=== PATIENT | male | born 1940 | race Caucasian/White ===

== ENCOUNTER 2018-10-01 13:05 | Emergency (ER) | payer MEDICARE ==
[~2018-10-01] VITALS: Ht 175.3 cm; Wt 100.0 kg
[~2018-10-01 13:05] MED LIST: ADULT ASPIRIN E81 MG PO; ADULT ASPIRIN L81 MG PO; ALEVE220 M1 PO; ALLEGRA-D 2424 HOUR PO; CARDURA2 MG PO; CIPRODEX1 ML OT; CITALOPRAM10 MG PO; COSOPT1 ML OP; DEPO-MEDROL80 MG/ML IM; DOXAZOSIN1 MG PO; ELAVIL25 MG PO; FLEXERIL OR; FLEXERIL PO; FLEXERIL5 MG PO; HYDROCHLOROT12.5 MG PO; LAMISIL250 MG PO; LIALDA1.2 GM PO; LIPITOR10 MG PO; LIPITOR40 MG OR; LISINOP/HCTZ1 TA1 PO; LOMOTIL2.5 MG OR; LORTAB 7.57.5 MG PO; LYRICA50 MG PO; METOPROLOL TART50 MG PO; MULTI VIT PO; NEURONTIN300 MG PO; NEURONTIN600 MG PO; NORVASC10 M1 OR; OMEPRAZOLE20 MG PO; PLAVIX75 MG PO; SPORANOX100 MG PO; TRUBIOTICS PO; ULTRAM50 MG OR; UROCIT-K 10 OR; ZESTRIL20 MG OR; ZPAK PO; ZYLOPRIM300 MG OR; ZYLOPRIM300 MG PO; [UNRECOGNIZED DRUG - CODE] OR; [UNRECOGNIZED DRUG - OTHER] PO
[2018-10-01] MEDS ORDERED: ATORVASTATIN CA10 MG PO (14:06)
[2018-10-01] MEDS ORDERED: DOXAZOSIN1 MG PO (14:07)
[2018-10-01] MEDS ORDERED: GABAPENTIN100 MG PO (14:08)
[2018-10-01] MEDS ORDERED: SPIRONOLACTONE25 MG PO (14:09)
[2018-10-01] MEDS ORDERED: TIMOLOL 0.5%5 ML OD (14:09)
[2018-10-01] MEDS ORDERED: BRILINTA60 MG PO (14:10)
[2018-10-01 15:34] VITALS: BP 143/79
== END 2018-10-01 15:34 | disposition home or self-care (01) ==
LOC: ED 13:05
DX: S06.0X1A Concussion with loss of consciousness of 30 minutes or less, initial encounter (principal); S01.81XA Laceration without foreign body of other part of head, initial encounter; I10 Essential (primary) hypertension; W01.0XXA Fall on same level from slipping, tripping and stumbling without subsequent striking against object, initial encounter; Y92.008 Other place in unspecified non-institutional (private) residence as the place of occurrence of the external cause; Z95.5 Presence of coronary angioplasty implant and graft

== ENCOUNTER → 2018-12-07 | Outpatient (REF) | payer MEDICARE ==
[~2018-12-07] MED LIST changes: +ATORVASTATIN CA10 MG PO; +BRILINTA60 MG PO; +GABAPENTIN100 MG PO; +SPIRONOLACTONE25 MG PO; +TIMOLOL 0.5%5 ML OD
[2018-12-07 08:41] LABS: HEMATOCRIT 42.5 % (39.0-50.0); HEMOGLOBIN 14.4 g/dl (14.0-18.0); IMMATURE GRANULOCYTES 0.2 % (0.0-5.0); MEAN CELL VOLUME 98.8 fL CALC (80.0-100.0); MEAN CORPUSCULAR HGB 33.5 pG CALC (26.0-32.0); MEAN CORPUSCULAR HGB CONC 33.9 g/L CALC (32.0-36.0); NEUT# 3.9 thou/uL (1.82-7.42); RED BLOOD COUNT 4.3 mill/uL (4.70-6.10); RED CELL DISTRI WIDTH 13.6 % (11.5-15.5)
[2018-12-07 09:01] LABS: ANION GAP 15 (6-22 (CALC)); BUN 23 mg/dL (8-23); BUN/CREATININE RATIO 21 (12-20 (CALC)); CARBON DIOXIDE 24 mmol/l (22-30); CHLORIDE 102 mmol/l (95-108); CREATININE 1.1 mg/dL (0.7-1.3); GFR > 60 ML/MIN (>=60 (CALC)); GFR FOR AFR.AMER. > 60 ML/MIN (>=60 (CALC)); POTASSIUM 3.7 mmol/l (3.5-5.1); SODIUM 138 mmol/l (137-146)
== END | disposition home or self-care (01) ==
LOC: LAB 07:37
PROVIDERS: ATTEND Internal Medicine
DX: E78.49 Other hyperlipidemia (principal); I10 Essential (primary) hypertension

== ENCOUNTER 2019-06-09 13:49 | Emergency (ER) | payer MEDICARE ==
[~2019-06-09] VITALS: Ht 175.3 cm; Wt 100.0 kg
[2019-06-09] MEDS ORDERED: FLEXERIL PO (15:15)
[2019-06-09] MEDS ORDERED: TORADOL PO (15:15)
[2019-06-09 15:24] VITALS: BP 111/55
== END 2019-06-09 15:30 | disposition home or self-care (01) ==
LOC: ED 13:49
DX: S16.1XXA Strain of muscle, fascia and tendon at neck level, initial encounter (principal); M46.92 Unspecified inflammatory spondylopathy, cervical region; I10 Essential (primary) hypertension; X58.XXXA Exposure to other specified factors, initial encounter

== ENCOUNTER 2019-09-03 12:27 | Emergency (ER) | payer MEDICARE ==
[~2019-09-03] VITALS: Ht 175.3 cm; Wt 100.0 kg
[~2019-09-03 12:27] MED LIST changes: +TORADOL PO
[2019-09-03 14:00] VITALS: BP 132/69
== END 2019-09-03 14:00 | disposition home or self-care (01) ==
LOC: ED 12:27
PROC: 0HQFXZZ Repair Right Hand Skin, External Approach (ICD-10-PCS; principal; 2019-09-03)
DX: S61.011A Laceration without foreign body of right thumb without damage to nail, initial encounter (principal); I10 Essential (primary) hypertension; W26.0XXA Contact with knife, initial encounter; Y93.89 Activity, other specified

== ENCOUNTER 2019-12-12 | Emergency (ER) | payer MEDICARE ==
[2019-12-12] MEDS ORDERED: BACTRIM DS1 TAB PO (10:22)
[2019-12-12] MEDS ORDERED: OMNICEF300 M1 PO (10:33)
== END 2019-12-12 10:50 | disposition home or self-care (01) ==
PROC: 0H99XZZ Drainage of Perineum Skin, External Approach (ICD-10-PCS; principal; 2019-12-12)
DX: L02.215 Cutaneous abscess of perineum (principal); I10 Essential (primary) hypertension; B95.62 Methicillin resistant Staphylococcus aureus infection as the cause of diseases classified elsewhere

== ENCOUNTER 2020-01-22 | Emergency (ER) | payer MEDICARE ==
[~2020-01-22] MED LIST changes: +BACTRIM DS1 TAB PO; +OMNICEF300 M1 PO
[2020-01-22] MEDS ORDERED: BACTRIM DS1 TAB PO (16:01)
== END 2020-01-22 16:25 | disposition home or self-care (01) ==
DX: L03.114 Cellulitis of left upper limb (principal); I10 Essential (primary) hypertension

== ENCOUNTER 2020-08-25 16:47 | Emergency (ER) | payer MEDICARE | END 2020-08-25 17:31 | disposition left against medical advice (07) | LOC: ED 16:47 → LWOBS 17:31 | DX: Z53.21 Procedure and treatment not carried out due to patient leaving prior to being seen by health care provider (principal) ==

== ENCOUNTER 2021-04-04 16:16 | Emergency (ER) | payer MEDICARE ==
[~2021-04-04] VITALS: Ht 175.3 cm; Wt 96.0 kg
[2021-04-04] MEDS ORDERED: OFLOXACIN0.3 % OD ×2 (17:32→17:42)
[2021-04-04 17:35] VITALS: BP 134/81
== END 2021-04-04 17:45 | disposition home or self-care (01) ==
LOC: ED 16:16
DX: S05.01XA Injury of conjunctiva and corneal abrasion without foreign body, right eye, initial encounter (principal); J34.0 Abscess, furuncle and carbuncle of nose; I10 Essential (primary) hypertension; Z95.5 Presence of coronary angioplasty implant and graft; W22.8XXA Striking against or struck by other objects, initial encounter

== ENCOUNTER 2021-06-20 11:20 | Emergency (ER) | payer MEDICARE ==
[~2021-06-20] VITALS: Ht 175.3 cm; Wt 100.0 kg
[~2021-06-20 11:20] MED LIST changes: +OFLOXACIN0.3 % OD
[2021-06-20 13:22] LABS: ALBUMIN 3.6 g/dL (3.2-5.0); CREATININE 1.4 mg/dL (0.7-1.3); TOTAL PROTEIN 6.6 g/dL (6.3-8.2)
[2021-06-20 13:23] LABS: BILIRUBIN, TOTAL 1.5 mg/dL (0.0-1.4); POTASSIUM 2.9 mmol/l (3.5-5.1)
[2021-06-20 13:35] LABS: HEMATOCRIT 43.9 % (39.0-50.0); HEMOGLOBIN 14.6 g/dl (14.0-18.0); IMMATURE GRANULOCYTES 0.6 % (0.0-5.0); MEAN CELL VOLUME 97.3 fL CALC (80.0-100.0); MEAN CORPUSCULAR HGB 32.4 pG CALC (26.0-32.0); MEAN CORPUSCULAR HGB CONC 33.3 g/dL CAL (32.0-36.0); NEUT# 6.15 thou/uL (1.82-7.42); RED BLOOD COUNT 4.51 mill/uL (4.70-6.10); RED CELL DISTRI WIDTH 13.9 % (11.5-15.5)
[2021-06-20] MEDS ORDERED: K-DUR/KLOR-CON20 MEQ PO (16:01)
[2021-06-20 16:06] VITALS: BP 142/66
== END 2021-06-20 16:21 | disposition home or self-care (01) ==
LOC: ED 11:20 → ED-I 14:50 → ED 16:21
PROVIDERS: Family Medicine
DX: A04.72 Enterocolitis due to Clostridium difficile, not specified as recurrent (principal); E87.6 Hypokalemia; I10 Essential (primary) hypertension; Z95.5 Presence of coronary angioplasty implant and graft; Z20.822 Contact with and (suspected) exposure to COVID-19
CPT/HCPCS: Q9967

== ENCOUNTER 2022-12-16 09:12 | Emergency (ER) | payer MEDICARE ==
[~2022-12-16] VITALS: Ht 175.3 cm; Wt 99.8 kg
[~2022-12-16 09:12] MED LIST changes: +K-DUR/KLOR-CON20 MEQ PO
[2022-12-16 11:17] VITALS: BP 148/90
== END 2022-12-16 11:17 | disposition home or self-care (01) ==
LOC: ED 09:12
PROC: 0H9CXZZ Drainage of Left Upper Arm Skin, External Approach (ICD-10-PCS; principal; 2022-12-16)
DX: L02.412 Cutaneous abscess of left axilla (principal); I10 Essential (primary) hypertension; Z95.5 Presence of coronary angioplasty implant and graft

== ENCOUNTER 2023-01-13 09:33 | Emergency (ER) | payer MEDICARE ==
[~2023-01-13] VITALS: Ht 175.3 cm; Wt 104.5 kg
[2023-01-13 09:46] VITALS: BP 152/58
[2023-01-13 10:01] VITALS: BP 123/70
[2023-01-13 10:15] VITALS: BP 130/74
[2023-01-13 11:02] VITALS: BP 130/74
== END 2023-01-13 11:10 | disposition home or self-care (01) ==
LOC: ED 09:33
PROC: 0H9CXZZ Drainage of Left Upper Arm Skin, External Approach (ICD-10-PCS; principal; 2023-01-13)
DX: L02.412 Cutaneous abscess of left axilla (principal); I10 Essential (primary) hypertension; Z95.5 Presence of coronary angioplasty implant and graft; Z86.19 Personal history of other infectious and parasitic diseases

== ENCOUNTER 2023-02-03 08:44 | Emergency (ER) | payer MEDICARE ==
[~2023-02-03] VITALS: Ht 175.3 cm; Wt 100.0 kg
[2023-02-03 08:53] VITALS: BP 148/79
[2023-02-03 09:00] VITALS: BP 142/74
[2023-02-03 09:30] VITALS: BP 130/66
[2023-02-03 10:01] VITALS: BP 117/75
== END 2023-02-03 10:05 | disposition home or self-care (01) ==
LOC: ED 08:44
PROC: 0H9EXZZ Drainage of Left Lower Arm Skin, External Approach (ICD-10-PCS; principal; 2023-02-03)
DX: L02.414 Cutaneous abscess of left upper limb (principal); I10 Essential (primary) hypertension; Z95.5 Presence of coronary angioplasty implant and graft; Z86.14 Personal history of Methicillin resistant Staphylococcus aureus infection; Z86.19 Personal history of other infectious and parasitic diseases

== ENCOUNTER 2023-11-03 09:58 | Emergency (ER) | payer MEDICARE, MEDICAID ==
[2023-11-03] VITALS (8 sets, daily range): BP systolic 74–108; BP diastolic 42–69
[~2023-11-03] VITALS: Ht 175.3 cm; Wt 97.0 kg
[2023-11-04] MEDS ORDERED: NAPROXEN500 MG PO (07:33)
[2023-11-05] MEDS ORDERED: BUDESONIDE3 MG (12:34)
[2023-11-05] MEDS ORDERED: TIMOLOL 0.5%5 ML OP (12:34)
[2023-11-05] MEDS ORDERED: IMODIUM2 MG PO (12:34)
[2023-11-05] MEDS ORDERED: POTASSIUM CHLO10 MEQ PO ×2 (12:35→12:36)
[2023-11-05] MEDS ORDERED: LISINOP/HCTZ1 TA2 PO (12:35)
[2023-11-05] MEDS ORDERED: GABAPENTIN600 MG PO (12:35)
[2023-11-05] MEDS ORDERED: ATORVASTATIN CA20 MG PO (12:35)
[2023-11-05] MEDS ORDERED: ALLOPURINOL300 MG PO (12:36)
[2023-11-05] MEDS ORDERED: B121000 MC1 (12:36)
[2023-11-05] MEDS ORDERED: DOXAZOSIN2 M1 PO (12:36)
[2023-11-07] MEDS ORDERED: TRAMADOL HCL50 MG PO (10:06)
== END 2023-11-03 12:04 | disposition home or self-care (01) ==
LOC: ED 09:58
PROC: 0H9JXZZ Drainage of Left Upper Leg Skin, External Approach (ICD-10-PCS; principal; 2023-11-03)
DX: L02.416 Cutaneous abscess of left lower limb (principal); I10 Essential (primary) hypertension; Z86.14 Personal history of Methicillin resistant Staphylococcus aureus infection; Z95.5 Presence of coronary angioplasty implant and graft

== ENCOUNTER 2023-11-04 07:00 | Emergency (ER) | payer MEDICARE, MEDICAID ==
[~2023-11-04] VITALS: Ht 175.3 cm; Wt 96.6 kg
[2023-11-04 07:07] VITALS: BP 130/87
[2023-11-04 07:16] VITALS: BP 122/69
[2023-11-04 07:30] VITALS: BP 126/70
[2023-11-04] MEDS ORDERED: NAPROXEN500 MG PO (07:33)
[2023-11-04 07:45] VITALS: BP 131/78
[2023-11-05] MEDS ORDERED: BUDESONIDE3 MG (12:34)
[2023-11-05] MEDS ORDERED: IMODIUM2 MG PO (12:34)
[2023-11-05] MEDS ORDERED: TIMOLOL 0.5%5 ML OP (12:34)
[2023-11-05] MEDS ORDERED: ATORVASTATIN CA20 MG PO (12:35)
[2023-11-05] MEDS ORDERED: GABAPENTIN600 MG PO (12:35)
[2023-11-05] MEDS ORDERED: LISINOP/HCTZ1 TA2 PO (12:35)
[2023-11-05] MEDS ORDERED: POTASSIUM CHLO10 MEQ PO ×2 (12:35→12:36)
[2023-11-05] MEDS ORDERED: B121000 MC1 (12:36)
[2023-11-05] MEDS ORDERED: DOXAZOSIN2 M1 PO (12:36)
[2023-11-05] MEDS ORDERED: ALLOPURINOL300 MG PO (12:36)
[2023-11-07] MEDS ORDERED: TRAMADOL HCL50 MG PO (10:06)
== END 2023-11-04 07:49 | disposition home or self-care (01) ==
LOC: ED 07:00
DX: Z48.01 Encounter for change or removal of surgical wound dressing (principal); I10 Essential (primary) hypertension

== ENCOUNTER 2024-09-06 10:10 | Observation (INO) | payer MEDICARE, MEDICAID ==
[2024-09-06] VITALS (8 sets, daily range): BP systolic 102–142; BP diastolic 64–81
[~2024-09-06] VITALS: Ht 175.3 cm; Wt 95.0 kg
[~2024-09-06 10:10] MED LIST changes: +ALLOPURINOL300 MG PO; +ATORVASTATIN CA20 MG PO; +B121000 MC1; +BAYER ASPIRIN E81 MG PO; +BUDESONIDE3 MG; +CELEBREX100 M1 PO; +DOXAZOSIN2 M1 PO; +GABAPENTIN600 MG PO; +HYDROCHLOROT25 MG PO; +IMODIUM2 MG PO; +LISINOP/HCTZ1 TA2 PO; +MUPIROCIN21 TOP; +NAPROXEN500 MG PO; +POTASSIUM CHLO10 MEQ PO; +TIMOLOL 0.5%5 ML OP; +TRAMADOL HCL50 MG PO
[2024-09-06] MEDS ORDERED: LACTATED RINGER'S 1,000 ML IV ONE (10:31)
[2024-09-06] MEDS ORDERED: FAMOTIDINE 10MG/ML 2ML SDV IV ONE (10:31)
[2024-09-06] MEDS ORDERED: CLINDAMYCIN PHOSPHATE 50 ML IV ONE (10:40)
[2024-09-06] MEDS ORDERED: LIDOcaine HCl 1% (Local Anesth.) 20 ML VIAL ONE ×2 (12:12→13:20)
[2024-09-06] MEDS ORDERED: SUCCINYLCHOLINE CHLORIDE 20 MG/ML 10ML VIAL IV ONE (13:01)
[2024-09-06] MEDS ORDERED: ACETAMINOPHEN 1,000 MG/100 ML VIAL IV ONE (13:01)
[2024-09-06] MEDS ORDERED: SUGAMMADEX SODIUM 200 MG/2 ML SDV IV ONE (13:01)
[2024-09-06] MEDS ORDERED: PROPOFOL 200 MG/20 ML VIAL IV ONE (13:01)
[2024-09-06] MEDS ORDERED: ROCURONIUM BROMIDE 10 MG/ML 5ML VIAL IV ONE (13:01)
[2024-09-06] MEDS ORDERED: LACTATED RINGER'S 1,000 ML BAG IV ONE (13:01)
[2024-09-06] MEDS ORDERED: SODIUM CHLORIDE 0.9% 1,000 ML IV PRN (13:05)
[2024-09-06] MEDS ORDERED: HYDROmorphone HCL 2 MG/AMP IV PRN (13:05)
[2024-09-06] MEDS ORDERED: SIMETHICONE 20 MG/0.3 ML PO PRN (13:05)
[2024-09-06] MEDS ORDERED: ONDANSETRON HCl 4 MG/2 ML SDV IV PRN (13:05)
[2024-09-06] MEDS ORDERED: traMADol HCL 50 MG/TAB PO PRN (13:15)
[2024-09-06] MEDS ORDERED: STERILE WATER FOR IRRIGATION 1,000 ML BTL IR ONE (15:07)
[2024-09-06] MEDS ORDERED: GABAPENTIN 300 MG/CAP PO SCH (17:00)
[2024-09-06] MEDS ORDERED: KETOROLAC TROMETHAMINE 15 MG/ML SDV IV SCH (18:00)
[2024-09-07 04:08] VITALS: BP 119/65
[2024-09-07 05:57] LABS: BILIRUBIN, TOTAL 1.8 mg/dL (0.2-1.3); CREATININE 0.9 mg/dL (0.7-1.3); POTASSIUM 3.6 mmol/l (3.5-5.1); TOTAL PROTEIN 5.1 g/dL (6.3-8.2)
[2024-09-07 06:10] LABS: BASO% 0.3 % (0-3); EOS% 0.9 % (0-8); IMMATURE GRANULOCYTES 0.1 % (0.0-5.0); LYMPH% 9.6 % (15-41); MEAN CORPUSCULAR HGB 33.8 pG CALC (26.0-32.0); MEAN CORPUSCULAR HGB CONC 33.2 g/dL CAL (32.0-36.0); MONO% 8.6 % (2-13); NEUT# 5.6 thou/uL (1.82-7.42); NEUT% 80.5 % (42-76); RED BLOOD COUNT 3.99 mill/uL (4.70-6.10); RED CELL DISTRI WIDTH 14.7 % (11.5-15.5)
[2024-09-07 06:11] LABS: ALBUMIN 2.8 g/dL (3.2-5.0)
[2024-09-07 06:12] LABS: HEMATOCRIT 40.7 % (39.0-50.0); HEMOGLOBIN 13.5 g/dl (14.0-18.0)
[2024-09-07 06:57] VITALS: BP 108/68
[2024-09-07] MEDS ORDERED: POTASSIUM CHLORIDE 10 MEQ/TAB PO SCH (09:00)
[2024-09-07] MEDS ORDERED: LISINOPRIL 20 MG/TAB PO SCH (09:00)
[2024-09-07] MEDS ORDERED: TERAZOSIN HCL 1 MG CAP PO SCH (09:00)
[2024-09-07] MEDS ORDERED: DOXAZOSIN PO SCH (09:00)
[2024-09-07] MEDS ORDERED: LOPERAMIDE HCL 2 MG CAP PO SCH (09:00)
[2024-09-07] MEDS ORDERED: BUDESONIDE PO SCH (09:00)
[2024-09-07] MEDS ORDERED: LEVOFLOXACIN 250 MG IV SCH (09:00)
[2024-09-07 10:51] VITALS: BP 116/69
[2024-09-07] MEDS ORDERED: INFLUENZA VIRUS VACCINE FLUZONE HD 2024/25 0.5 ML INJ IM SCH (14:00)
[2024-09-07 14:54] VITALS: BP 113/61
[2024-09-07 18:33] VITALS: BP 107/65
[2024-09-07 23:16] VITALS: BP 138/68
[2024-09-08 03:32] VITALS: BP 127/68
[2024-09-08 07:10] VITALS: BP 117/63
[2024-09-08] MEDS ORDERED: DOCUSATE SODIUM 100 MG/CAP PO SCH (10:30)
[2024-09-08 10:39] VITALS: BP 144/61
[2024-09-08] MEDS ORDERED: TRAMADOL HYDROC50 M1 PO (13:03)
== END 2024-09-08 15:08 | disposition home health service (06) ==
LOC: ORM 10:10 → MS2 15:40
PROVIDERS: ADMIT Surgery; ATTEND Surgery
PROC: 0WUF0JZ Supplement Abdominal Wall with Synthetic Substitute, Open Approach (ICD-10-PCS; principal; 2024-09-06)
PROC: 02HV33Z Insertion of Infusion Device into Superior Vena Cava, Percutaneous Approach (ICD-10-PCS; 2024-09-06)
PROC: 3E02340 Introduction of Influenza Vaccine into Muscle, Percutaneous Approach (ICD-10-PCS; 2024-09-07)
DX: K43.2 Incisional hernia without obstruction or gangrene (principal); I10 Essential (primary) hypertension; E78.5 Hyperlipidemia, unspecified; Z90.49 Acquired absence of other specified parts of digestive tract; Z87.19 Personal history of other diseases of the digestive system; Z23 Encounter for immunization
CPT/HCPCS: 90662; J0131; J0736; J1956

== ENCOUNTER 2024-09-30 14:23 | Emergency (ER) | payer MEDICARE, MEDICAID ==
[~2024-09-30 14:23] MED LIST changes: +TRAMADOL HYDROC50 M1 PO
== END 2024-09-30 14:38 | disposition left against medical advice (07) ==
LOC: ED 14:23 → LWOBS 14:38
DX: Z53.21 Procedure and treatment not carried out due to patient leaving prior to being seen by health care provider (principal)